=== PATIENT | male | born 1990 | race Caucasian/White ===

== ENCOUNTER 2017-03-26 19:14 | Emergency (ER) | payer OTHER ==
[~2017-03-26] VITALS: Ht 180.3 cm; Wt 100.4 kg
[2017-03-26 19:18] VITALS: TEMP 36.8; Ht 180.3 cm; Wt 100.4 kg
[2017-03-26] MEDS ORDERED: ONDANSETRON INJ 2 MG/ML 2 ML VIAL IV STA (19:26)
[2017-03-26] MEDS ORDERED: FAMOTIDINE 20MG/102 ML D5W IV STA (19:26)
[2017-03-26] MEDS ORDERED: SODIUM CHLORIDE 0.9% 1000ML 1,000 ML IV STA (19:26)
[2017-03-26] MEDS ORDERED: DEXAMETHASONE SOD INJ 4 MG/ML VIAL IV STA (19:26)
[2017-03-26 19:40] VITALS: O2SAT 93
[2017-03-26] MEDS ORDERED: DIPH50TA10 PO (19:51)
[2017-03-26] MEDS ORDERED: PROMETHAZINE HCL INJ 25 MG in SODIUM CHLORIDE 0.9% 50ML 50 ML IV STA (21:37)
[2017-03-26] MEDS ORDERED: EpINEphrine INJ 1MG/ML AMP 1 MG/ML AMP IM STA (21:37)
[2017-03-26] MEDS ORDERED: DiphenhydrAMINE HCL 50 MG/ML VIAL IV STA (21:37)
[2017-03-26] MEDS ORDERED: RANITIDINE HCL 150 MG TAB PO ONE (23:00)
[2017-03-26 23:01] VITALS: BP 146/81
[2017-03-26] MEDS ORDERED: PRED50TA PO (23:01)
[2017-03-26] MEDS ORDERED: EMPTY 8 DRAM VIAL ONE (23:02)
[2017-03-26 23:05] VITALS: PULSE 86; O2SAT 96
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
== END 2017-03-26 23:09 | disposition home or self-care (01) ==
LOC: C.EDB 19:16 → C.EDA 23:09
DX: T78.40XA Allergy, unspecified, initial encounter (principal); X58.XXXA Exposure to other specified factors, initial encounter; G89.29 Other chronic pain; Z98.890 Other specified postprocedural states

== ENCOUNTER 2017-03-30 20:49 | Emergency (ER) | payer OTHER ==
[~2017-03-30] VITALS: Ht 180.3 cm; Wt 97.6 kg
[~2017-03-30 20:49] MED LIST: DIPH50TA10 PO; PRED50TA PO
[2017-03-30 20:53] VITALS: Ht 180.3 cm; Wt 97.6 kg
[2017-03-30] MEDS ORDERED: SODIUM CHLORIDE 0.9% 1000ML 2,000 ML IV STA (21:07)
--- NOTE | 2017-03-30 21:13 | EMERGENCY ROOM VISIT NOTE ---
History Report prepared by Kentrell: Cici Morejon Under the Supervision of: Dr. Inocente Rhoades M.D. First contact with patient: 21:03 Chief Complaint: FEVER Stated Complaint: TEMP 106.9, EYES, LIPS NUMB History of Present Illness The patient is a 26 year old male who presents to the Emergency Room with complaints of a fever beginning today. He states that he was febrile at 106.9. The patient also has a headache, diaphoresis, and nausea. He denies abdominal pain, vomiting, and urinary symptoms. The patient states that he has been around his son who is also sick. Source of History: patient Onset: today Position: other (global) Quality: other (fever) Associated Symptoms: + headache, + diaphoresis, + nausea, No vomiting, No abdominal pain, No urinary symptoms Review of Systems See HPI for pertinent positives & negatives. A total of 10 systems reviewed and were otherwise negative. Past Medical & Surgical Medical Problems: (1) Chronic leg pain (2) Chronic low back pain (3) Lumbar nerve stimulator Surgical Problems: (1) History of inguinal herniorrhaphy (2) S/P hernia repair (3) Spinal cord stimulator status Family History FH: diabetes mellitus FHx: heart disease Kidney stones Social History Smoking Status: Never Smoker Drug Use: none Marital Status: single Occupation Status: employed Current/Historical Medications No Active Prescriptions or Reported Meds Allergies Coded Allergies: BEE STING (Unverified Allergy, Unknown, SWELLING, 03/30/17) Fish (Unverified Allergy, Unknown, ANAPHYLAXIS, 03/30/17) Physical Exam Vital Signs Date Time Temp Pulse Resp B/P (MAP) Pulse Ox O2 Delivery O2 Flow Rate FiO2 03/30/17 23:21 37.8 61 16 140/83 100 Room Air 03/30/17 22:22 74 20 120/71 97 Room Air 03/30/17 20:53 37.4 106 18 129/69 95 Room Air Physical Exam GENERAL: Patient is uncomfortable appearing and in mild distress. Diaphoretic. Extensive first degree sunburn over arms, legs, face, and neck. HEENT: No acute trauma, normocephalic atraumatic, mucous membranes moist, no nasal congestion, no scleral icterus. NECK: No stridor, no adenopathy, no meningismus, trachea is midline. LUNGS: No dyspnea. Clear to auscultation and equal bilaterally. No wheeze, no rhonchi. HEART: Tachycardic, regular rhythm. No murmurs, rubs, gallops appreciated. ABDOMEN: Soft, nontender, bowel sounds positive, no masses appreciated, no peritonitis. BACK: No midline tenderness, no CVA tenderness EXTREMITIES: Normal motion all extremities, no cyanosis, no edema. NEUROLOGIC: Alert and oriented, no acute motor or sensory deficits, no focal weakness, cranial nerves grossly intact. SKIN: No rash, no jaundice, no diaphoresis. Medical Decision & Procedures Laboratory Results 03/30/17 21:30 Red Blood Count 5.38, Mean Corpuscular Volume 85.5, Mean Corpuscular Hemoglobin 28.1, Mean Corpuscular Hemoglobin Concent 32.8, Mean Platelet Volume 9.5, Neutrophils (%) (Auto) 62.0, Lymphocytes (%) (Auto) 24.5, Monocytes (%) (Auto) 11.9, Eosinophils (%) (Auto) 0.6, Basophils (%) (Auto) 0.7, Neutrophils # (Auto ) 4.45, Lymphocytes # (Auto) 1.76, Monocytes # (Auto) 0.85, Eosinophils # (Auto ) 0.04, Basophils # (Auto) 0.05 03/30/17 21:30 Test 03/30/17 21:30 03/30/17 21:34 White Blood Count 7.17 K/uL (4.8-10.8) Red Blood Count 5.38 M/uL (4.7-6.1) Hemoglobin 15.1 g/dL (14.0-18.0) Hematocrit 46.0 % (42-52) Mean Corpuscular Volume 85.5 fL (80-100) Mean Corpuscular Hemoglobin 28.1 pg (25-34) Mean Corpuscular Hemoglobin Concent 32.8 g/dl (32-36) Platelet Count 240 K/uL (130-400) Mean Platelet Volume 9.5 fL (7.4-10.4) Neutrophils (%) (Auto) 62.0 % Lymphocytes (%) (Auto) 24.5 % Monocytes (%) (Auto) 11.9 % Eosinophils (%) (Auto) 0.6 % Basophils (%) (Auto) 0.7 % Neutrophils # (Auto) 4.45 K/uL (1.4-6.5) Lymphocytes # (Auto) 1.76 K/uL (1.2-3.4) Monocytes # (Auto) 0.85 K/uL (0.11-0.59) Eosinophils # (Auto) 0.04 K/uL (0-0.5) Basophils # (Auto) 0.05 K/uL (0-0.2) RDW Standard Deviation 40.2 fL (36.4-46.3) RDW Coefficient of Variation 12.8 % (11.5-14.5) Immature Granulocyte % (Auto) 0.3 % Immature Granulocyte # (Auto) 0.02 K/uL (0.00-0.02) Anion Gap 7.0 mmol/L (3-11) Est Creatinine Clear Calc Drug Dose 100.7 ml/min Estimated GFR () 86.1 Estimated GFR (Non- 74.3 BUN/Creatinine Ratio 17.7 (10-20) Calcium Level 9.2 mg/dl (8.5-10.1) Total Bilirubin 0.7 mg/dl (0.2-1) Aspartate Amino Transf (AST/SGOT) 10 U/L (15-37) Alanine Aminotransferase (ALT/SGPT) 23 U/L (12-78) Alkaline Phosphatase 91 U/L (45-117) Total Creatine Kinase 63 U/L (39-308) Total Protein 6.7 gm/dl (6.4-8.2) Albumin 3.6 gm/dl (3.4-5.0) Globulin 3.1 gm/dl (2.5-4.0) Albumin/Globulin Ratio 1.2 (0.9-2) Bedside Lactic Acid Venous 0.68 mmol/L (0.90-1.70) Laboratory results as reviewed by me. Medications Administered Medications (Trade) Dose Ordered Sig/Lorna Route Start Time Stop Time Status Last Admin Dose Admin Sodium Chloride 2,000 ml @ 999 mls/hr Q2H1M STAT IV 03/30/17 21:07 03/30/17 23:07 DC 03/30/17 21:35 999 MLS/HR ED Course 2100: The patient was evaluated in room B7. A complete history and physical exam was performed. 2107: Ordered Sodium Chloride 2000 ml @ 999 mls/hr IV. 2256: The patient states that he feels much better. He is comfortable and no longer diaphoretic. 2310: Reevaluated the patient. Discussed results and discharge instructions: He verbalized understanding and agreement. The patient is ready for discharge. Medical Decision Differential: Viral, Pharyngitis, Cellulitis, Pneumonia, Influenza, Meningitis, Sepsis, Bacteremia, UTI/Pyelonephritis, Endocrine, Toxicologic, amongst other pathologies entertained. Blood Pressure Screening: Patient was found to have a slightly elevated blood pressure due to circumstances. I do not believe that the patient requires hypertension monitoring. Medication Reconciliation: I attest that I have personally reviewed the patient 's current medication list. 26 yr old male arrives with complaint of dehydration and fever. He is quite diaphoretic on arrival and uncomfortable consistent with breaking the reported 106 degree fever he had at home. No fever here and after some fluids looking great in no distress. Labs normal and lactic acid wnl. He feels well and wishes to go home. No evidence of bacterial infection and given family history of multiple ppl with viral like illness seems reasonable to assume this is the same. He does not have meningitis by exam, lungs are clear, abdomen soft, no urinary symptoms and is in good health by examination. Impression Primary Impression: Fever Additional Impression: Dehydration Scribe Attestation The scribe's documentation has been prepared under my direction and personally reviewed by me in its entirety. I confirm that the note above accurately reflects all work, treatment, procedures, and medical decision making performed by me. Departure Information Dispostion Home / Self-Care Prescriptions No Active Prescriptions or Reported Meds Referrals Christina Fenton M.D. (PCP) Patient Instructions ED Fever Control, My [facility] Problem Qualifiers
[2017-03-30 22:11] LABS: BASO % 0.7 %; BASO ABS # 0.05 K/uL (0-0.2); COMPLETE YES; EOS % 0.6 %; IG% 0.3 %; LYMPH % 24.5 %; LYMPH ABS # 1.76 K/uL (1.2-3.4); MEAN CELL VOLUME 85.5 fL (80-100); MEAN CORPUSCULAR HEMOGLOBIN 28.1 pg (25-34); MEAN CORPUSCULAR HGB CONC 32.8 g/dl (32-36); MEAN PLATELET VOLUME 9.5 fL (7.4-10.4); MONO % 11.9 %; PLATELET COUNT 240 K/uL (130-400); RED BLOOD COUNT 5.38 M/uL (4.7-6.1); WHITE BLOOD COUNT 7.17 K/uL (4.8-10.8)
[2017-03-30 22:16] LABS: BUN/CREATININE RATIO 17.7 (10-20); CALCIUM 9.2 mg/dl (8.5-10.1); CREATININE 1.3 mg/dl (0.60-1.40); POTASSIUM 3.4 mmol/L (3.5-5.1)
[2017-03-30 22:19] LABS: ALB/GLOB RATIO 1.2 (0.9-2)
[2017-03-30 23:21] VITALS: BP 140/83; PULSE 61; TEMP 37.8; O2SAT 100
== END 2017-03-30 23:27 | disposition home or self-care (01) ==
LOC: C.EDB 20:51
DX: R50.9 Fever, unspecified (principal); E86.0 Dehydration; G89.29 Other chronic pain; M54.5 Low back pain; M79.606 Pain in leg, unspecified; Z96.9 Presence of functional implant, unspecified; Z83.3 Family history of diabetes mellitus; Z87.442 Personal history of urinary calculi; L55.0 Sunburn of first degree

== ENCOUNTER 2017-05-10 14:17 | Emergency (ER) | payer OTHER ==
[~2017-05-10] VITALS: Ht 177.8 cm; Wt 97.7 kg
[2017-05-10 14:21] VITALS: TEMP 36.7; Ht 177.8 cm; Wt 97.7 kg
[2017-05-10] MEDS ORDERED: METOCLOPRAMIDE HCL INJ 5 MG/ML 2 ML VIAL IV STA (14:54)
[2017-05-10] MEDS ORDERED: KETOROLAC TROMETHAMINE 30 MG/ML VIAL IV STA (14:54)
[2017-05-10] MEDS ORDERED: SODIUM CHLORIDE 0.9% 1000ML 1,000 ML IV STA ×2 (14:54→17:28)
[2017-05-10] MEDS ORDERED: DiphenhydrAMINE HCL 50 MG/ML VIAL IV STA (14:54)
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
[2017-05-10] MEDS ORDERED: AMOX250C3 PO (16:26)
[2017-05-10] MEDS ORDERED: DEXAMETHASONE SOD INJ 10 MG/ML VIAL IV ONE (17:30)
--- NOTE | 2017-05-10 19:06 | DIAGNOSTIC IMAGING REPORT ---
HEAD WITHOUT CONTRAST (CT) CT DOSE: 537.48 mGy.cm HISTORY: Headache headache TECHNIQUE: Multiaxial CT images of the head were performed without the use of intravenous contrast. A dose lowering technique was utilized adhering to the principles of ALARA. Comparison: None. Findings: Moderate mucosal thickening left maxillary sinus, left frontal, and left ethmoid air cells. Mastoids are clear. The calvarium and skull base are intact. The ventricles and sulci are within normal limits. There is no mass, hematoma, midline shift, or acute infarct. Impression: No acute intracranial abnormality. Moderate mucosal thickening of the left maxillary, left frontal, and left ethmoid air cells The above report was generated using voice recognition software. It may contain grammatical, syntax or spelling errors. Electronically signed by: Richi Patel M.D. 05/10/2017 7:05 PM Dictated Date/Time: 05/10/2017 7:00 PM
[2017-05-10] MEDS ORDERED: IBUP-1451 PO (19:18)
[2017-05-10 19:32] VITALS: BP 120/75; PULSE 65; O2SAT 99
== END 2017-05-10 19:35 | disposition home or self-care (01) ==
LOC: C.EDB 14:18
DX: G43.909 Migraine, unspecified, not intractable, without status migrainosus (principal); J32.9 Chronic sinusitis, unspecified; G89.29 Other chronic pain; Z98.890 Other specified postprocedural states; Z83.3 Family history of diabetes mellitus; Z82.49 Family history of ischemic heart disease and other diseases of the circulatory system; Z84.1 Family history of disorders of kidney and ureter; Z88.1 Allergy status to other antibiotic agents; Z91.030 Bee allergy status